=== PATIENT | male | born 1990 | race Caucasian/White ===

== ENCOUNTER 2023-01-04 17:57 | Emergency (ER) | payer MEDICAID, OTHER ==
[2023-01-04] MEDS ORDERED: Lidocaine 4% Cream 5 GM TUBE w/ Tegaderm ONE (18:32)
[2023-01-04] MEDS ORDERED: Bacitracin 1 PK ONE (18:36)
== END 2023-01-04 19:05 | disposition home or self-care (01) ==
LOC: EDBD 17:57 → NAV ERS 17:57
DX: S61.412A Laceration without foreign body of left hand, initial encounter (principal); S61.512A Laceration without foreign body of left wrist, initial encounter; W26.9XXA Contact with unspecified sharp object(s), initial encounter
CPT/HCPCS: 12001

== ENCOUNTER 2023-06-06 09:46 | Emergency (ER) | payer MEDICARE, MEDICAID ==
[2023-06-06] MEDS ORDERED: diphenhydrAMINE 25 MG CAP ONE (10:28)
== END 2023-06-06 10:57 | disposition home or self-care (01) ==
LOC: NAV ERS 09:46
DX: H10.13 Acute atopic conjunctivitis, bilateral (principal)
CPT/HCPCS: 99283